=== PATIENT | female | born 1995 | race Caucasian/White ===

== ENCOUNTER 2020-01-05 13:11 | Inpatient (IN) | payer MEDICAID, SELFPAY ==
[2020-01-05] VITALS (37 sets, daily range): BP systolic 92–155; BP diastolic 53–87; PULSE 63–137; TEMP 36.6–37.1; O2SAT 81–100; BMI 23.1
[2020-01-05] MEDS: Lactated Ringers 1,000 ML 50 ML IV (13:25)
[2020-01-05 13:46] LABS: Absolute Lymphocyte Count 1.75 X10^3/uL (0.83-4.51); Absolute Neutrophil Count 7.4 X10^3/uL (2.0-7.7); Basophil# 0.02 X10^3/uL; Basophil% 0.2 % (0-1); Eosinophil# 0.11 X10^3/uL; Eosinophils% 1.1 % (0-5); Hematocrit 37.6 % (37-47); Hemoglobin 13.7 g/dL (12.0-15.0); Lymphocyte # 1.75 X10^3/ul (4.0); Lymphocyte % 17.4 % (19-41); Mean Corp Hgb Conc 36.4 g/dL (32-36); Mean Corpuscular Hgb 33.2 pg (27.0-32.0); Mean Platelet Vol. 11.2 fl (6.2-12.0); NRBC Flagged by Analyzer 0 % (0-5); Neutrophil # 7.38 X10^3/uL (2.7-7.7); Neutrophil % 73.5 % (47-70); Platelet Count 233 K/mm3 (150-450); RBC Distribution Width CV 14.3 % (11.6-14.6); RBC Distribution Width SD 47.1 fl (35.1-43.9); Red Blood Count 4.13 M/mm3 (4.2-5.4)
[2020-01-05] MEDS: miSOPROStol 25 MCG TABLET VAGINAL (14:55)
[2020-01-05] MEDS: 0.9% Normal Saline Single 100 ML IV.SOLN. IY (16:53)
--- NOTE | 2020-01-05 17:17 | HP.PCM_ITS ---
History Date of Admission: 01/05/20 Final ZENOBIA: 01/27/20 Gestational age: 36 Weeks and 6 Days History of this : This is a 24 year-old, G [], P [], at 36 weeks gestational age. Allergies No Known Allergies Allergy (Verified 01/05/20 13:52) Home Medications: Home Medications Vit,Calc76/Iron/Folic [Pnv 29-1 Tablet] 1 tab PO DAILY 01/05/20 Smoking Status: Never smoker Alcohol: None Number of Fetus(es): 1 NST - FHR Rate Baby A Baseline: 145 Variability:: Moderate Accelerations:: 15 x 15 Decelerations:: None Uterine Activity:: Irregular History Past Pregnancies: Past Pregnancies Delivery Date Name GA/ Weeks Outcome Route Wt Infant Sex Labor Length Anesthesia Delivery Location Provider FOB Labs: See [facility] H&P Physical Exam General: Alert, Oriented x3 Abdomen: Soft, Non Tender, Non-Distended, Gravid Neurological: Cranial nerves II-XII grossly intact [employer]: Normal external genitalia Estimated gestational size: Appropriate for gestational size Presentation: Cephalic Cervix Dilation (cm): 2 - Intracervical rodriguez placed Station: -2 Effacement (%): 80 Assessment/Plan This is a 24 year-old, G1, P0, at 36&6 weeks gestational age with cholestasis Admit to L&D Induction - s/p cytotec, intracervical rodriguez placed COVID test pending GBS negative Pain - epidural as desired EFW - less than 4500g, patient with adequate pelvis Routine care
[2020-01-05] MEDS: Oxytocin 30 units/NS 500 ml 30 UNITS/500 ML IV.SOLN IV (19:57)
[2020-01-05] MEDS: Lactated Ringers 500 ML 999 ML IV ×2 (20:25→22:16)
[2020-01-05] MEDS: fentaNYL-bupivacaine (epidural) 100 ML BAG EPIDURAL (21:21)
[2020-01-05] MEDS: Lactated Ringers 1,000 ML 200 ML IV (23:41)
[2020-01-06] VITALS (29 sets, daily range): BP systolic 104–129; BP diastolic 58–75; PULSE 60–110; RESP 16–18; TEMP 36.2–37.4; O2SAT 97–100
--- NOTE | 2020-01-06 00:08 | OP.PCM_ITS ---
Vaginal Delivery Maternal Presentation: Medically Indicated Induction Method of Induction: Pitocin, Pabon Bulb, Cytotec Medical Reason for Induction: Compromise: list: - Cholestasis Amniotic Membrane Rupture Type: Spontaneous Amniotic Fluid Description: Lightly stained meconium Final ZENOBIA: 01/27/20 Gestational age: 37 Weeks and 0 Days Date of Procedure: 01/06/20 Pre-Operative Diagnosis: Cholestasis of Post-Operative Diagnosis: Same Surgery/ Procedure Performed: Spontaneous Vaginal Delivery Type of Anesthesia: Epidural Description of Procedure: Patient prepped in stirrups when C/C/+2. She pushed to deliver head. Fet al head gently guided to allow delivery or anterior and posterior shoulders. No excess traction placed on head. Body delivered and placed on maternal abdomen. 3VC clamped & cut in delayed fashion. Placenta delivered with gentle traction. Good uterine tone obtained. Presentation: ASHLIE Placental Delivery Description: Expressed Placenta Disposition: [facility] Cord Vessel Description: 3 Vessels Estimated Blood Loss: 350ml A gender: Female - Anya (1 minute): 10 (5 minute): 10 Episiotomy Description: None Laceration: 1st degree - perineal - repaired with 3-0 vicryl Medications given after delivery: IV Pitocin Complications: None
[2020-01-06] MEDS: Oxytocin 30 units/NS 500 ml 30 UNITS/500 ML IV.SOLN 334 UNITS IV (00:26)
[2020-01-06] MEDS: 0.9% Saline Lock 10 ML Syringe IV (02:55)
[2020-01-06] MEDS: Ibuprofen 600 MG Tablet PO ×3 (05:56→20:16)
[2020-01-06] MEDS: Dibucaine 30 GM Tube 1 APPLIC TOPICAL (14:14)
[2020-01-06] MEDS: Acetaminophen 500 MG Tablet 1000 MG PO (15:57)
[2020-01-06] MEDS: DiphenhydrAMINE 25 MG Capsule PO (22:37)
[2020-01-07 00:35] VITALS: BP 123/67; PULSE 61; RESP 18; TEMP 36.8
[2020-01-07 00:39] VITALS: BP 123/67; PULSE 61
[2020-01-07] MEDS: Acetaminophen 500 MG Tablet 1000 MG PO ×2 (03:48→12:13)
[2020-01-07 04:35] VITALS: BP 122/58; PULSE 69; RESP 18; TEMP 36.8
[2020-01-07 08:30] VITALS: BP 118/65; PULSE 71; RESP 14; TEMP 37; O2SAT 98
[2020-01-07 08:43] VITALS: BP 118/65; PULSE 80
[2020-01-07] MEDS: Ibuprofen 600 MG Tablet PO (08:48)
--- NOTE | 2020-01-07 10:48 | PCM.PN.OB ---
Subjective: Patient seen at bedside. Resting quietly with infant. Denies pain. going well at this time. Lochia decreasing. Desires discharge home today. - Physical Exam Vitals/I&O's: Vital Signs Temp Pulse Resp BP Pulse Ox 98.6 F 80 14 118/65 98 01/07/20 08:30 01/07/20 08:43 01/07/20 08:30 01/07/20 08:43 01/07/20 08:30 Oxygen Delivery Method Room Air Weight: 126 lb 1.671 oz Body Mass Index (BMI) 23.1 Intake and Output for Last 24 Hours 01/05/20 01/06/20 01/07/20 23:59 23:59 23:59 Intake Total 1844.16 / 1844.16 658.97 / 658.97 Output Total 925 / 925 Balance 1844.16 / 1844.16 -266.03 / -266.03 General: Alert, Oriented x3 Oral: Moist Mucosa Lungs: Normal air movement Cardiovascular: Regular rate Abdomen: Soft, Non Tender Skin: No rashes Neurological: Cranial nerves II-XII grossly intact Psych/Mental Status: Normal Affect, Appropriate Current Medications Acetaminophen (Tylenol) 1,000 mg PO Q8H PRN PRN PRN Reason: Pain Score 1-3/10 Last Admin: 01/07/20 03:48 Dose: 1,000 mg Documented by: Bisacodyl (Dulcolax) 10 mg RECTAL UD PRN PRN Reason: If no BM Dibucaine (Dibucaine) 1 applic TOPICAL TID PRN PRN; Protocol PRN Reason: Discomfort Last Admin: 01/06/20 14:14 Dose: 1 applicatio Documented by: Diphenhydramine HCl (Benadryl) 25 mg PO QHS PRN PRN PRN Reason: ITCHING Last Admin: 01/06/20 22:37 Dose: 25 mg Documented by: Hydrocortisone (Hytone) 1 applic TOPICAL TID PRN PRN; Protocol PRN Reason: Discomfort Ibuprofen (Motrin) 600 mg PO Q6H PRN PRN PRN Reason: Pain Score 1-3/10 Last Admin: 01/07/20 08:48 Dose: 600 mg Documented by: Methylergonovine Maleate (Methergine) 0.2 mg IM X1 PRN PRN Reason: Excess bleeding/uterine atony Ondansetron HCl (Zofran) 4 mg IV Q4H PRN PRN PRN Reason: Nausea Oxycodone HCl (Oxyir) 5 - 10 mg PO Q4H PRN PRN PRN Reason: Pain Score 4-10/10 Senna/Docusate Sodium (Senokot-S, Michelle-Colace) 1 - 2 tablet PO DAILY PRN PRN PRN Reason: Constipation Simethicone (Mylicon) 80 mg PO PCHS PRN PRN Reason: Indigestion/Stomach pain Sodium Chloride () 5 - 15 ml IV UD PRN PRN Reason: SALINE FLUSH Last Admin: 01/06/20 02:55 Dose: 10 ml Documented by: Medical Necessity - Tobacco Use Smoking Status: Never smoker Assessment/Plan A/P PPD #1 Routine care Pain control Discharge instructions verbally given and questions answered Discharge home and follow up in 2 weeks
--- NOTE | 2020-01-07 10:51 | DCINST_ITS ---
Discharge Diet: No Restrictions Discharge Activity: Return to Normal Activity, May Shower May resume sexual activity in: 6-8 weeks Additional Instructions: If you experience any of the following, contact your healthcare provider. * Bleeding that soaks a pad every hour for 2 hours * Fever 100.4 or higher * Unrelieved incision or abdominal pain * Swelling, redness, discharge or bleeding from your incision or episiotomy site * Your incision begins to separate * Problems urinating (including inability to urinate or burning while urinating). * Visual changes * Severe headache * Flu-like symptoms * Pain or redness in one of both of your breasts * Pain, warmth, tenderness or swelling in your legs, especially the calf area * Frequent nausea and vomiting * Symptoms of depression or anxiety If you experience any of the following, call 911 or go to the nearest Emergency Room. * Chest pain * Problems breathing * Seizure activity * Partial or complete paralysis of a body part, slurred speech, weakness or drooping of the face, or a sudden inability to walk or hold your balance Allergies/Adverse Reactions: Allergies No Known Allergies Allergy (Verified 01/05/20 13:52) Medications to take at Discharge Vit,Calc76/Iron/Folic [Pnv 29-1 Tablet] 1 tab PO DAILY 01/05/20 Please Follow Up With: Candy Nieves CNM When: 2 weeks virtual visit and 4 weeks in office Test Results: Test results from this visit will be discussed in further detail at your follow- up appointment, if applicable. Proposed Discharge Date: 01/07/20
--- NOTE | 2020-01-07 10:51 | PCM.DCVAG ---
Discharge Diet: No Restrictions Discharge Activity: Return to Normal Activity, May Shower May resume sexual activity in: 6-8 weeks Additional Instructions: If you experience any of the following, contact your healthcare provider. Bleeding that soaks a pad every hour for 2 hours Fever 100.4 or higher Unrelieved incision or abdominal pain Swelling, redness, discharge or bleeding from your incision or episiotomy site Your incision begins to separate Problems urinating (including inability to urinate or burning while urinating). Visual changes Severe headache Flu-like symptoms Pain or redness in one of both of your breasts Pain, warmth, tenderness or swelling in your legs, especially the calf area Frequent nausea and vomiting Symptoms of depression or anxiety If you experience any of the following, call 911 or go to the nearest Emergency Room. Chest pain Problems breathing Seizure activity Partial or complete paralysis of a body part, slurred speech, weakness or drooping of the face, or a sudden inability to walk or hold your balance Allergies/Adverse Reactions: Allergies No Known Allergies Allergy (Verified 01/05/20 13:52) Medications to take at Discharge Vit,Calc76/Iron/Folic [Pnv 29-1 Tablet] 1 tab PO DAILY 01/05/20 Please Follow Up With: Candy Nieves CNM When: 2 weeks virtual visit and 4 weeks in office Test Results: Test results from this visit will be discussed in further detail at your follow-up appointment, if applicable. Proposed Discharge Date: 01/07/20
--- NOTE | 2020-01-07 14:31 | NURSING ---
not done d/t phq9 done by case technician.
== END 2020-01-07 12:30 | disposition home or self-care (01) | DRG 560 ==
PROVIDERS: Admitting Provider Obstetrics & Gynecology; Referring Provider Obstetrics & Gynecology; Visit Provider Obstetrics & Gynecology
DX: O26.62 Liver and biliary tract disorders in childbirth (principal); K83.1 Obstruction of bile duct; O70.0 First degree perineal laceration during delivery; Z3A.36 36 weeks gestation of pregnancy; Z37.0 Single live birth
CPT/HCPCS: 59025; 59050; 85025; 86850; 86900; 86901; 87635; 99218; G2023; J7120; A4216; G0378; U0003

== ENCOUNTER 2021-03-13 06:55 | Inpatient (IN) | payer BC, MEDICAID, SELFPAY ==
[2021-03-13] VITALS (60 sets, daily range): BP systolic 101–137; BP diastolic 55–89; PULSE 55–132; RESP 16; TEMP 36.3–36.8; O2SAT 82–100; BMI 23.6
[2021-03-13] MEDS: Lactated Ringers 1,000 ML 50 ML IV (07:36)
[2021-03-13 07:52] LABS: Absolute Lymphocyte Count 1.97 X10^3/uL (0.83-4.51); Basophil# 0.03 X10^3/uL; Basophil% 0.3 % (0-1); Eosinophils% 3.9 % (0-5); Hematocrit 37.7 % (37-47); Hemoglobin 13.8 g/dL (12.0-15.0); Lymphocyte # 1.97 X10^3/ul (0.83-4.51); Lymphocyte % 19.3 % (19-41); Mean Corp Hgb Conc 36.6 g/dL (32-36); Mean Corpuscular Hgb 33.3 pg (27.0-32.0); Mean Corpuscular Volume 90.8 fL (81-99); Mean Platelet Vol. 11.3 fl (6.2-12.0); Monocyte# 0.71 X10^3/uL; NRBC Flagged by Analyzer 0 % (0-5); Neutrophil # 7.01 X10^3/uL (2.7-7.7); Neutrophil % 68.6 % (47-70); Platelet Count 219 K/mm3 (150-450); RBC Distribution Width CV 14.1 % (11.6-14.6); RBC Distribution Width SD 46.1 fl (35.1-43.9); Red Blood Count 4.15 M/mm3 (4.2-5.4); White Blood Count 10.2 K/mm3 (4.4-11.0)
[2021-03-13] MEDS: Oxytocin 30 units/NS 500 ml 30 UNITS/500 ML IV.SOLN IV (07:55)
[2021-03-13] MEDS: Lactated Ringers 500 ML 999 ML IV (10:37)
[2021-03-13] MEDS: fentaNYL-bupivacaine (epidural) 100 ML BAG EPIDURAL (11:15)
[2021-03-13] MEDS: Oxytocin 30 units/NS 500 ml 30 UNITS/500 ML IV.SOLN 334 UNITS IV (13:18)
--- NOTE | 2021-03-13 13:28 | PCM.HP.OB ---
HPI - General General Date of Admission: 03/13/21 HPI Narrative JOHN CEVALLOS, is a 26-year-old 2 para 1 who presented at 37 weeks gestation with cholestasis of . She had cholestasis with her previous . She denies any vaginal bleeding or leaking of fluid. She is had good movement and some pressure. She presents for induction of labor today. Maternal Data Information Final ZENOBIA: 03/31/21 Final ZENOBIA Source: [place] <20 weeks Gestational age: 37 3/7 PFSH PFSH Medical History no medical history Home Medications vit,[id number] 1 tab PO DAILY 01/05/20 [History Last Taken 03/12/21 21:00] ursodiol 300 mg PO TID 03/13/21 [History Last Taken 03/12/21 21:00] Allergy/AdvReac Type Severity Reaction Status Date / Time No Known Allergies Allergy Verified 03/13/21 08:18 Family History no significant family his Surgical History no surgical history Social History Smoking Status: Never smoker History Elective abortions Hx Para 1 Spontaneous abortions Hx # Term Pregnancies Ectopic pregnancies Hx # Pregnancies Multiple births # of living children ROS Constitutional Constitutional: Denies fatigue, fever(s) or malaise Eyes Eyes: Denies change in vision ENT HEENT: Denies dizziness or headache(s) Cardiovascular Cardiovascular: Denies chest pain, dyspnea or lightheadedness Respiratory/Chest Respiratory/Chest: Denies cough or dyspnea Gastrointestinal Gastrointestinal: Denies change in bowel habits Genitourinary Genitourinary: Denies burning urination or genital lesions Integumentary Integumentary: Denies rash Neurologic Neurologic: Denies confusion, dizziness, headache(s), numbness or weakness Vital Signs Vital Signs Vital Signs: 03/13/21 07:54 03/13/21 07:56 03/13/21 07:57 Temperature 97.3 F L Temperature Source Temporal Pulse Rate 95 128 H Blood Pressure 109/72 BP Systolic 109 BP Diastolic 72 Pulse Ox 99 99 03/13/21 08:26 03/13/21 09:39 03/13/21 10:38 Temperature 97.5 F L 97.3 F L 97.5 F L Temperature Source Temporal Temporal Temporal Pulse Rate 90 75 64 Blood Pressure 125/79 H 102/63 102/60 BP Systolic 125 102 102 BP Diastolic 79 63 60 Pulse Ox 98 98 100 03/13/21 10:59 03/13/21 11:00 03/13/21 11:04 Temperature 97.4 F L Temperature Source Temporal Pulse Rate 87 79 82 Blood Pressure 137/89 H 127/79 H BP Systolic 137 127 BP Diastolic 89 79 Pulse Ox 100 03/13/21 11:05 03/13/21 11:10 03/13/21 11:11 Temperature Temperature Source Pulse Rate 78 67 Blood Pressure 101/55 L BP Systolic 101 BP Diastolic 55 Pulse Ox 99 100 03/13/21 11:15 03/13/21 11:16 03/13/21 11:19 Temperature Temperature Source Pulse Rate 75 86 80 Blood Pressure 104/59 L 103/59 L BP Systolic 104 103 BP Diastolic 59 59 Pulse Ox 100 100 03/13/21 11:21 03/13/21 11:24 03/13/21 11:26 Temperature Temperature Source Pulse Rate 77 81 81 Blood Pressure 105/59 L BP Systolic 105 BP Diastolic 59 Pulse Ox 100 100 100 03/13/21 11:30 03/13/21 11:31 03/13/21 11:36 Temperature Temperature Source Pulse Rate 90 70 89 Blood Pressure 137/87 H 109/63 BP Systolic 137 109 BP Diastolic 87 63 Pulse Ox 100 100 100 03/13/21 11:39 03/13/21 11:41 03/13/21 12:42 Temperature 97.3 F L Temperature Source Temporal Pulse Rate 69 Blood Pressure 108/66 BP Systolic 108 BP Diastolic 66 Pulse Ox 83 100 03/13/21 12:43 03/13/21 13:07 Temperature Temperature Source Pulse Rate 92 88 Blood Pressure 119/72 BP Systolic 119 BP Diastolic 72 Pulse Ox 99 Weight Weight: 58.5 kg Body Mass Index (BMI) 23.6 Physical Exam Const alert and no apparent distress General Appearance: cooperative HEENT normocephalic Resp normal respiratory effort Cardio regular rate GI soft to palpation GI Narrative: gravid, nontender, appropriate for gestational age Extremity no calf tenderness General Extremity: edema Skin no wounds Rashes: No rashes noted Psych activity/motor behavior normal Labs Labs Labs: Blood Type B POSITIVE Antibody Screen NEGATIVE Hct 37.7 % (37-47) Hgb 13.8 g/dL (12.0-15.0) Rhogam given: No Assessment & Plan (1) 37 weeks gestation of : (2) Cholestasis during in third trimester: (3) Supervision of other high risk pregnancies, third trimester: PLAN: Response and alternatives to induction labor him discussed with patient, questions were answered to her satisfaction she desires to proceed. We will proceed with Pitocin and AROM for induction of labor. Estimated weight is less than 4500 g and pelvis clinically adequate to expect vaginal delivery. She understands risks of early term induction of labor versus continuing the with cholestasis and desires to proceed with induction.
--- NOTE | 2021-03-13 13:31 | OP.PCM_ITS ---
Assessment & Plan (1) Supervision of other high risk pregnancies, third trimester: (2) Cholestasis during in third trimester: (3) 37 weeks gestation of : (4) Normal vaginal delivery: Maternal Data Information Final ZENOBIA: 03/31/21 Final ZENOBIA Source: [place] <20 weeks Gestational age: 37 3/7 Vaginal Delivery Maternal Presentation Maternal Presentation: Medically Indicated Induction Maternal Presentation: cholestasis of Type of Induction: Pitocin and Amniotomy Operative Information Date of Procedure: 03/13/21 Pre-Operative Diagnosis: labor Post-Operative Diagnosis: same Surgery / Procedure Performed: Spontaneous Vaginal Delivery Type of Anesthesia: Epidural Special Medications: none Drain: Pabon to straight drain Estimated Blood Loss: 200 Time of Delivery: 13:16 Findings Description of Procedure: A vigorous male infant was delivered ASHLIE over an intact perineum. A loose nuchal cord ?1 was easily reduced. The remainder the infant was delivered with maternal pushing and gentle traction only in less than 15 seconds. The Pitocin infusion was initiated for active management of the third stage. The cord was clamped and cut after 1 minute. The infant was atte nded to by the waiting nursing staff. The placenta was delivered spontaneously and intact. The cervix and vagina were intact. Sponge and needle counts were correct. A vaginal sweep was completed by me. Presentation: ASHLIE Amniotic Membrane Rupture Type: Artificial Amniotic Fluid Description: Lightly stained meconium Placental Delivery Description: Spontaneous Placenta Disposition: [facility] Specimen(s) Removed: none Cord Vessel Description: 3 Vessels Cord Entanglement: Around neck x 1, loose Nuchal Cord Compression: Without compression A Gender: Male (Neal) (1 minute): 9 (5 minute): 9 Delayed Cord Clamping: Yes Post Vaginal Delivery Medications Given After Delivery: IV Pitocin Episiotomy Description: None Laceration: None Complication Complications: None Admit VTE Documentation VTE Present on Admission: No Reason Prophylaxis Not Ordered: Procedure Not Indicated
[2021-03-13] MEDS: Ibuprofen 600 MG Tablet PO (22:39)
[2021-03-14 04:38] VITALS: BP 113/69; PULSE 66; RESP 16; TEMP 36.7
--- NOTE | 2021-03-14 08:19 | PCM.PN.OB ---
Subjective Subjective Patient seen at bedside. Feeling good. with minimal support. Ambulating and voiding without difficulty. Desires discharge home today. Objective Data Objective Data Vital Signs: Vital Signs Temp Pulse Resp BP Pulse Ox 98.1 F 66 16 113/69 98 03/14/21 04:38 03/14/21 04:38 03/14/21 04:38 03/14/21 04:38 03/13/21 15:30 Oxygen Delivery Method Room Air Weight: 128 lb 15.527 oz Body Mass Index (BMI) 23.6 Intake & Output: Intake and Output for Last 24 Hours 03/12/21 03/13/21 03/14/21 23:59 23:59 23:59 Intake Total 1905.00 / 1905.00 Output Total 1450 / 1450 400 / 400 Balance 455.00 / 455.00 -400 / -400 Lab / Micro Data Result Diagrams: 03/13/21 07:36 Labs: Laboratory Results - last 24 hr 03/13/21 07:36: Blood Type B POSITIVE, Antibody Screen NEGATIVE ROS Eyes Eyes: Denies blurry vision, change in vision or spots in vision ENT HEENT: Denies dizziness or headache(s) Cardiovascular Cardiovascular: Denies abdominal pain, chest pain or dyspnea Respiratory/Chest Respiratory/Chest: Denies cough, dyspnea, shortness of breath at rest or shortness of breath with exertion Gastrointestinal Gastrointestinal: Denies abdominal pain, diarrhea or vomiting Genitourinary Genitourinary: Denies change in urinary stream, difficulty urinating or dysuria Musculoskeletal Musculoskeletal: Reports none Integumentary Integumentary: Denies rash Neurologic Neurologic: Denies dizziness, headache(s), memory loss or weakness Physical Exam Const alert and no apparent distress General Appearance: cooperative and comfortable Exam Limitations: no limitations HEENT normocephalic Eyes General Eye: normal appearance of both eyes Neck full ROM General: normal visual inspection Chest Chest: symmetrical chest wall rise Resp normal respiratory effort and normal air movement Effort and Inspection: symmetric chest movement Auscultation: clear to auscultation bilaterally Cardio regular rate and regular rhythm GI normal to inspection, nondistended, normoactive bowel sounds Back/Spine normal ROM Extremity full ROM and no calf tenderness General Extremity: normal exam except as noted Skin no rashes or lesions noted Neuro CN's II-XII intact bilaterally Psych mental status grossly normal Assessment & Plan (1) Normal vaginal delivery: PLAN: PPD 2 Routine care Discharge home with follow up in office
--- NOTE | 2021-03-14 08:21 | PCM.DC ---
Discharge Instructions Diet Discharge Diet: No restrictions Activity May resume sexual activity in: 6-8 weeks Weight Bearing Status: Weight bearing as tolerated Dressing / Incision Call your doctor if you observe: Fever of 101 or Higher, Inability to urinate, Using more than 1 pad per hour, Shortness of breath, Chest pain, Calf discomfort and Uncontrolled pain Follow Up Care Please Follow Up With: Candy Nieves CNM When: 2 weeks virtual visit/ 6 weeks in office Test Results: Test results from this visit will be discussed in further detail at your follow-up appointment, if applicable. Discharge Plan Admission Admit Date/Time: 03/13/21 06:55 Primary Reason for Your Visit: induction of labor Attending Provider: Diamante Arevalo Primary Care Provider: Jean Calles Discharge Orders/Prescriptions Prescriptions: Continued vit,[id number] 1 EACH tablet 1 tab PO DAILY RF: 0 Discontinued ursodiol 300 mg capsule 300 mg PO TID RF: 0 Referrals / Follow Up: Jean Calles MD [Primary Care Provider] - Disposition Disposition (needs filled in before D/C Order can be placed): Home, Self Care
[2021-03-14 09:49] VITALS: BP 119/71; PULSE 68; RESP 16; TEMP 36.7
[2021-03-14 12:21] VITALS: BP 109/71; PULSE 67; RESP 16; TEMP 36.6
[2021-03-14] MEDS: Ibuprofen 600 MG Tablet PO (13:34)
--- NOTE | 2021-03-14 15:05 | CASEMGMT ---
Original Note: SW Note Referral Source: PATI Bell Referral Reason: FOB makes inappropriate remarks such as he has been helping patient practice . Per RN patient had almost demanded that patient bottle feed the as was not getting enough nutrition. FOB appears to be brash toward the patient. Informant: PATI Bell, Patient and chart review Of note, RN administered the PHQ2 and her score was zero. SW went to room and met with patient. SW introduced self. The fob asked if he needed to leave and this telegraphic typewriter operator said yes. SW asked the FOB and patient which parent the resembled and FOB said his older sister. SW wanted to interview patient privately to ensure that she is safe. Of note, RN reported that FOB said we are just waiting for the lady to come to make sure I am not beating you prior to this telegraphic typewriter operator's visit. SW noted that patient was changing and breast feeding while this telegraphic typewriter operator spoke to her. Mom: Sofi EDC 03/31/21 at 37 weeks PNC: [facility] Control: undecided Baby: Neal 03/13/21 Apgars: 99 Weight: 6# 7 ounces Food Stylist: Ovidio Santos Breast Feeding. Patient reports that is going good. MOB's other children: Anya, age 14 months Housing: Patient, FOB, Anya and reside in home in [place]. Patient said that they are probably moving to [place] next month. Transportation: Patient reports she can drive car and has transportation. Supplies: Patient reports she has carseat, crib, bassinets, diapers and clothing for the . SW observed carseat and clothes. RN reports that patient and FOB brought in formula. Support: Patient said that her support is her . Patient said that her mother in law, who resides in [place], is also a support but may be coming to [place] with them to help for awhile. Education: Patient graduated from high school. No college. No learning issues reported. 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 Patient also receives WIC. No CSB, HMG, Counseling and legal involvement. FOB: Neal- Patient's Time Together: 3 years Involved at : Patient said that the FOB will be involved at and has always been involved. 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 Other children: Patient has a 14 year old child, Ali who resides with patient in the home. Patient denied any domestic violence. Patient reports no current or past history of domestic violence. Patient said that she is safe in the home. Patient reports no discharge concerns. Of note, on the admission patient denied any domestic violence. Patient's MH: Patient denied any issue with depression or anxiety currently or in the past. Patient denied psych medication. Patient denied psych hospitalization. Patient denied SI/HI currently. Patient denied any past history of post depression. Patient said that after her first child she was crying for a short period of time. SW educated patient on Shaken Baby Syndrome, PPD and Safe Sleeping. Patient indicated she had some crying after the of her daughter but it had lasted for a short period which she indicated was a couple of days. AOD History/ Drug Use: Patient denied any current or past drug use. SW provided patient with handout that included 10 facts about depression and anxiety in and post , Depression and anxiety and the post Support warm line, Information about [facility] Moms of Newborns, information about depression and checklist of symptoms, HMG information, list of counseling resources and online resources for post mood and anxiety disorder. RN updated. Plan: Home at discharge [facility] DELEON
== END 2021-03-14 15:00 | disposition home or self-care (01) | DRG 807 ==
PROVIDERS: Admitting Provider Obstetrics & Gynecology; PCP Family Medicine; Referring Provider Obstetrics & Gynecology; Visit Provider Obstetrics & Gynecology
DX: O69.81X0 Labor and delivery complicated by cord around neck, without compression, not applicable or unspecified (principal); Z37.0 Single live birth; O77.0 Labor and delivery complicated by meconium in amniotic fluid; Z3A.37 37 weeks gestation of pregnancy
CPT/HCPCS: 59025; 59050; 85025; 86850; 86900; 86901; 99218; J7120; G0378